=== PATIENT | female | born 1940 | race Caucasian/White ===

== ENCOUNTER 2018-02-17 11:41 | Emergency (ER) | payer MEDICARE, OTHER ==
[~2018-02-17] VITALS: Ht 154.9 cm; Wt 82.6 kg
[2018-02-17 11:41] VITALS: BP 161/73
[~2018-02-17 11:41] MED LIST: BUSP10TA35 PO; ESCI10TA PO; IBUP-1955 PO; LISI-607 PO; METF-442 PO; NITR100C6 PO; RANI150C4 PO; SIMV20TA6 PO
--- NOTE | 2018-02-17 11:43 | NUR ---
RECEIVED PATIENT FROM HOME WITH CC OF WORSENING LOWER BACK PAIN X 4 DAYS, DENIES RECENT FALL , VSS , ATTACHED TO MONITOR , WILL CONTINUE TO MONITOR
[2018-02-17] MEDS ORDERED: MORPHINE SULFATE INJ 2 MG/ML DISP.SYRIN ONE (12:26)
[2018-02-17] MEDS ORDERED: ONDANSETRON 4 MG TAB.RAPDIS ONE (12:26)
--- NOTE | 2018-02-17 12:28 | NUR ---
PT TRANSFERED TO RADILOGY DEPARTMENT FOR XRAY ORDERED , DAVID
[2018-02-17] MEDS ORDERED: ONDANSETRON 4 MG TAB.RAPDIS SL ONE (12:30)
[2018-02-17] MEDS ORDERED: MORPHINE SULFATE INJ 2 MG/ML DISP.SYRIN IM ONE (12:30)
--- NOTE | 2018-02-17 12:45 | NUR ---
PT STABLE POST XRAY , ATTACHED TO MONITOR ,
--- NOTE | 2018-02-17 13:07 | NUR ---
URINE SPECIMEN OBTAINED , LABALED AND SENT TO LAB ,
--- NOTE | 2018-02-17 13:49 | NUR ---
Patient discharged to home in stable condition. Written and verbal after care instructions given. Patient verbalizes understanding of instruction. per dr donald she will received a call tomorrow for the urine test result , and if she needs to take antibiotics .
== END 2018-02-17 13:50 | disposition home or self-care (01) ==
LOC: ER 11:49
DX: M48.56XA Collapsed vertebra, not elsewhere classified, lumbar region, initial encounter for fracture (principal); M54.42 Lumbago with sciatica, left side; M54.41 Lumbago with sciatica, right side; I10 Essential (primary) hypertension; E78.00 Pure hypercholesterolemia, unspecified; K21.9 Gastro-esophageal reflux disease without esophagitis; E11.9 Type 2 diabetes mellitus without complications; F32.9 Major depressive disorder, single episode, unspecified
CPT/HCPCS: 72110; 96372; 99284; A4606; J2270; Q0162; Z7610